=== PATIENT | male | born 1995 | race Caucasian/White ===

== ENCOUNTER 2019-05-03 20:09 | Emergency (ER) | payer BC ==
--- NOTE | 2019-05-03 20:56 | EDM.PDOC ---
ED HPI GENERAL MEDICAL PROBLEM - General Chief Complaint: Chest Pain Stated Complaint: CHEST PAIN Time Seen by Provider: 05/03/19 20:13 Source of Information: Reports: Patient History Limitations: Reports: No Limitations - History of Present Illness INITIAL COMMENTS - FREE TEXT/NARRATIVE: The patient presents with chest pain. This started about a week ago. It comes and goes. He has more pain when taking a deep breath and with movement at times. He has no fever, chills, cough, or shortness of breath. He has no history of heart problems. He does smoke. Onset: Gradual Duration: Week(s): (1) Location: Reports: Chest Quality: Reports: Sharp Severity: Mild Improves with: Reports: None Worsens with: Reports: Breathing, Movement Context: Denies: Trauma Associated Symptoms: Reports: Chest Pain. Denies: Cough, Fever/Chills, Headaches, Nausea/Vomiting, Shortness of Breath Bilateral Chest Pain Score (Numeric/FACES): 6 - Related Data Allergies Allergy/AdvReac Type Severity Reaction Status Date / Time No Known Allergies Allergy Verified 05/03/19 20:19 Home Meds: Home Meds . [No Known Home Meds] 05/03/19 [History] Past Medical History - Past Health History Medical/Surgical History: Denies Medical/Surgical History Social & Family History - Tobacco Use Smoking Status *Q: Current Every Day Smoker Years of Tobacco use: 10 Packs/Tins Daily: 0.5 - Recreational Drug Use Recreational Drug Use: Yes Drug Use in Last 12 Months: No Recreational Drug Type: Reports: Marijuana/Hashish, Methamphetamine Other Recreational Drug Type: states he has not used meth in 1 year, continues to use recreational marijuana ED ROS GENERAL - Review of Systems Review Of Systems: See Below Constitutional: Reports: No Symptoms HEENT: Reports: No Symptoms Respiratory: Reports: No Symptoms Cardiovascular: Reports: Chest Pain Endocrine: Reports: No Symptoms GI/Abdominal: Reports: No Symptoms : Reports: No Symptoms Musculoskeletal: Reports: No Symptoms Skin: Reports: No Symptoms ED EXAM, GENERAL - Physical Exam Exam: See Below Exam Limited By: No Limitations General Appearance: Alert, No Apparent Distress Ears: Normal External Exam Nose: Normal Inspection Head: Atraumatic, Normocephalic Neck: Normal Inspection Respiratory/Chest: No Respiratory Distress, Lungs Clear, Normal Breath Sounds Cardiovascular: Regular Rate, Rhythm, No Edema, No Murmur GI/Abdominal: Soft, Non-Tender, No Organomegaly, No Mass Back Exam: Normal Inspection Extremities: Normal Inspection Course - Vital Signs Last Recorded V/S: Last Vital Signs Temp 98.2 F 05/03/19 20:17 Pulse 82 05/03/19 20:17 Resp 16 05/03/19 20:17 BP 136/87 05/03/19 20:17 Pulse Ox 96 05/03/19 20:17 - Orders/Labs/Meds Orders: Active Orders 24 hr Category Date Time Status EKG Documentation Completion [RC] ASDIRECTED Care 05/03/19 20:20 Active CXR [Chest 2V] [CR] Stat Exams 05/03/19 20:24 Taken EKG 12 Lead [EK] Stat Ther 05/03/19 20:20 Ordered - Re-Assessments/Exams Free Text/Narrative Re-Assessment/Exam: 05/03/19 21:01 I ordered a CXR and it looks good. I feel this pleurisy. I will discharge the patient home. Departure - Departure Time of Disposition: 21:05 Disposition: Home, Self-Care 01 Condition: Good Clinical Impression: Pleurisy Referrals: PCP,Not In Area [Primary Care Provider] - Forms: ED Department Discharge Additional Instructions: Take motrin or aleve for pain. Stop smoking. Please return if you are worse. - My Orders Last 24 Hours: My Active Orders 05/03/19 20:20 EKG Documentation Completion [RC] ASDIRECTED EKG 12 Lead [EK] Stat 05/03/19 20:24 CXR [Chest 2V] [CR] Stat - Assessment/Plan Last 24 Hours: My Active Orders 05/03/19 20:20 EKG Documentation Completion [RC] ASDIRECTED EKG 12 Lead [EK] Stat 05/03/19 20:24 CXR [Chest 2V] [CR] Stat
--- NOTE | 2019-05-04 07:50 | CR ---
Chest: Two views of the chest were obtained. Comparison: No prior chest x-ray. Heart size and mediastinum are normal. Lungs are clear. Bony structures are unremarkable. Impression: 1. Nothing acute is seen on two- view chest x-ray. Diagnostic code #1
== END 2019-05-03 21:08 | disposition home or self-care (01) ==
LOC: JD.ED 20:09
DX: R09.1 Pleurisy (principal); F17.210 Nicotine dependence, cigarettes, uncomplicated
CPT/HCPCS: 71046; 71046-26; 93005; 93010; 99282; 99285-25